=== PATIENT | female | born 1995 | race Asian ===

== ENCOUNTER 2017-05-18 17:47 | Emergency (ER) | payer OTHER ==
[~2017-05-18 17:47] MED LIST: ISOVUE-370 76%-LOCM 1 ML ONE
[2017-05-18 21:23] LABS: BHCG - Serum Negative (NEGATIVE); Pregs Control Background? CLEAR/WHITE (CLR/WHITE); Pregs Control Bar Appear? YES (CONTROL BAR)
[2017-05-18 21:29] LABS: Anion Gap 11 mmol/L (10-20); BUN (Urea Nitrogen) 12 mg/dL (8.4-21.0); Calc. Creatinine Clearance 0 mL/min (70-130); Calcium 9.8 mg/dL (7.8-10.44); Carbon Dioxide 29 mmol/L (22-29); Chloride 102 mmol/L (98-107); Estimated GFR-MDRD Greater than 90; Glucose 118 mg/dL (70-105); Potassium 3.1 mmol/L (3.5-5.1); Sodium 139 mmol/L (136-145)
[2017-05-18] MEDS ORDERED: Potassium Chloride 20 MEQ TAB ONE (22:04)
--- NOTE | 2017-05-18 22:38 | CT ---
CTA OF THE CHEST WITH CONTRAST: Comparison: None. History: Shortness of breath and elevated D-Dimer. Past medial history of asthma and allergies. Chest pain. Technique: Multiple contiguous axial images were obtained in a CTA of the chest with contrast perform ed in aneurysm protocol. 3D oblique reformats and direct coronal reformats were performed. FINDINGS: The pulmonary arteries are well opacified without filling defects to suggest pulmonary embo li. The heart is normal in size without focal cardiac abnormality. No hilar or mediastinal adenopathy is seen. No pneumothorax or pleural effusion are seen. No focal infiltrates are seen in the lungs. No suspicio us pulmonary nodule is identified. The chest wall soft tissues and osseous structures are unremarkable. The visualized subdiaphragmatic structures are unremarkable. IMPRESSION: Normal CTA of the chest. POS: KARLOS
== END 2017-05-18 22:44 | disposition home or self-care (01) ==
LOC: ERS 17:47
DX: M94.0 Chondrocostal junction syndrome [Tietze] (principal); R09.1 Pleurisy; J45.909 Unspecified asthma, uncomplicated
CPT/HCPCS: 36415; 71275; 80048; 84703